=== PATIENT | male | born 1950 | race Hispanic/Latino ===

== ENCOUNTER 2018-01-02 07:31 | Day surgery (SDC) | payer MEDICARE ==
[2017-12-19 09:34] VITALS: BMI 24.8
[2018-01-02] MEDS ORDERED: Lactated Ringer's 1,000 ML IV SCH (08:45)
[2018-01-02] MEDS ORDERED: Etomidate 20 mg/10ml Inj IV ONE (08:45)
[2018-01-02] MEDS ORDERED: Propofol 10 mg/ml Inj (20 ML) ONE ×3 (08:46→09:19)
[2018-01-02 10:29] VITALS: RESP 18
[2018-01-02 10:51] VITALS: BP 154/82; PULSE 71; TEMP 97.6; O2SAT 98
== END 2018-01-02 11:10 | disposition home or self-care (01) ==
LOC: ENDO 07:31
PROVIDERS: ATTEND Internal Medicine Gastroenterology
DX: Z12.11 Encounter for screening for malignant neoplasm of colon (principal); D12.0 Benign neoplasm of cecum; K62.1 Rectal polyp; D17.5 Benign lipomatous neoplasm of intra-abdominal organs; K57.30 Diverticulosis of large intestine without perforation or abscess without bleeding; K64.8 Other hemorrhoids
CPT/HCPCS: 45385; 88305; J2704; J7040; J7120

== ENCOUNTER 2018-02-17 07:22 | Emergency (ER) | payer MEDICARE ==
[2018-02-17 07:23] VITALS: BMI 24.8
[2018-02-17 07:31] VITALS: TEMP 98.9
--- NOTE | 2018-02-17 07:47 | ED PDOC ---
Arrival/HPI - General Historian: Patient - History of Present Illness Time/Duration: 24 hours Symptom Course: Worsening Quality: Aching, Cramping, Burning Severity Level: 10 - General Chief Complaint: Male Genitourinary Time Seen by Provider: 02/17/18 07:35 - History of Present Illness Narrative History of Present Illness (Text): Patient is a 67 year old male with a past medical history of an enlarged prostate who presents to the emergency room for evaluation and treatment of pain near the pubis. Pain remains localized to the aforementioned region and is characterized as being sharp in nature. States that he has not urinated since 9pm yesterday evening. Admits to difficulty initiating the process of urination for the past year. Admits to having a biopsy of his prostate recently. Admits that the increased pressure in the bladder places pressure on the bowels causing him to increase his bowel movemnent frequency overnight. Denies fever, chills, chest pain, shortness of breath, nausea, vomiting, and constipation. 02/17/18 07:39 (Abdirahman Basurto) Past Medical History - Provider Review Nursing Documentation Reviewed: Yes - Travel History Have you recently traveled outside [place] w/in the past 3 mons?: No - Cardiac Hx Pacemaker: No - Pulmonary Hx Respiratory Disorders: No - Neurological Hx Neurological Disorder: No - HEENT Hx HEENT Disorder: No - Renal Hx Renal Disorder: No - Hematological/Oncological Hx Blood Transfusions: No Hx Blood Transfusion Reaction: No - Musculoskeletal/Rheumatological Hx Musculoskeletal Disorders: No - Psychiatric Hx Emotional Abuse: No Hx Physical Abuse: No Hx Substance Use: No - Anesthesia Hx Anesthesia Reactions: No Hx Malignant Hyperthermia: No - Suicidal Assessment Feels Threatened In Home Enviroment: No Family/Social History - Physician Review Nursing Documentation Reviewed: Yes Family/Social History: Unknown Family HX Smoking Status: Never Smoked Hx Alcohol Use: Yes (2 BEERS A DAY WITH DINNER) Hx Substance Use: No Allergies/Home Meds Allergies/Adverse Reactions: Allergies No Known Allergies Allergy (Verified 02/17/18 07:31) Home Medications: Home Meds Medication Instructions Recorded Confirmed Sildenafil Citrate [Viagra] 1 tab PO PRN PRN 12/19/17 02/17/18 Review of Systems - Physician Review All systems were reviewed & negative as marked: Yes - Review of Systems Constitutional: Normal Eyes: Normal ENT: Normal Respiratory: Normal Cardiovascular: Normal Gastrointestinal: Normal Genitourinary Male: Urinary Output Changes, Other (increased urinary urge, decreased output). absent: Frequency Musculoskeletal: Normal Skin: Normal Neurological: Normal Endocrine: Normal Hemo/Lymphatic: Normal Psychiatric: Normal Physical Exam Temperature: Afebrile Blood Pressure: Normal Pulse: Tachycardic Respiratory Rate: Normal Appearance: Positive for: Well-Appearing, Non-Toxic, Comfortable Pain Distress: None Mental Status: Positive for: Alert and Oriented X 3 - Systems Exam Head: Present: Atraumatic, Normocephalic Pupils: Present: PERRL Extroacular Muscles: Present: EOMI Conjunctiva: Present: Normal Mouth: Present: Moist Mucous Membranes Neck: Present: Normal Range of Motion Respiratory/Chest: Present: Clear to Auscultation, Good Air Exchange. No: Respiratory Distress, Accessory Muscle Use Cardiovascular: Present: Regular Rate and Rhythm, Normal S1, S2. No: Murmurs Abdomen: No: Tenderness, Distention, Peritoneal Signs Genitourinary Male: Present: Normal External Genitalia, Other (bladder distention ) Back: Present: Normal Inspection Upper Extremity: Present: Normal Inspection. No: Cyanosis, Edema Lower Extremity: Present: Normal Inspection. No: Edema Neurological: Present: GCS=15, CN II-XII Intact, Speech Normal Skin: Present: Warm, Dry, Normal Color. No: Rashes Psychiatric: Present: Alert, Oriented x 3, Normal Insight, Normal Concentration Vital Signs Temp Pulse Resp BP Pulse Ox 02/17/18 07:29 98.9 F 105 H 20 149/89 98 Medical Decision Making ED Course and Treatment: Assessment and Plan: Patient is a 67 year old male with a past medical history of an enlarged prostate who presents to the emergency room for evaluation and treatment of pain near the pubis. Bladder distention secondary to urinary retention secondary to chronic BPH vs inflammation from recent biopsy procedure 02/17/18 07:50 - patient endorsed to team by Dr. Ramirez - Calabrese catheter placed 02/17/18 07:57 - patient voided approximately 700cc of yellow colored urine - pain has resolved - call placed to Dr. Ramirez 02/17/18 08:21 - vitals stable BP 159/92, HR 92, Sat 99% on RA - patient ok for discharge to home with calabrese leg bag and flomax 02/17/18 08:23 (Abdirahman Basurto) 02/17/18 08:34 67 yo male presents with urinary retention. Agree with resident note. Calabrese placed by RN with 700cc yellow urine. Pain resolved. Reevaluation of abdomen: soft, NT, ND Patient was given Rx Flomax and advised to follow up with his Urologist as an outpatient in 1-[address] Ramirez was in the ED who is aware of patient's care plan. (Douglas Patel) Disposition/Present on Arrival - Present on Arrival Any Indicators Present on Arrival: No History of DVT/PE: No History of Uncontrolled Diabetes: No Urinary Catheter: No History of Decub. Ulcer: No History Surgical Site Infection Following: None - Disposition Have Diagnosis and Disposition been Completed?: Yes Disposition Time: 08:03 - Disposition Diagnosis: Urinary retention, Prostatic disease Disposition: HOME/ ROUTINE Patient Problems: Current Active Problems Problem Status Onset Prostatic disease Acute Condition: IMPROVED Additional Instructions: JACQUE STEELE, thank you for letting us take care of you today. Your provider was and you were treated for PROSTATE PROBLEMS. The emergency medical care you received today was directed at your acute symptoms. If you were prescribed any medication, please fill it and take as directed. It may take several days for your symptoms to resolve. Return to the Emergency Department if your symptoms worsen, do not improve, or if you have any other problems. Please contact your doctor or call one of the physicians/clinics you have been referred to that are listed on the Patient Visit Information form that is included in your discharge packet. Bring any paperwork you were given at discharge with you along with any medications you are taking to your follow up visit. Our treatment cannot replace ongoing medical care by a primary care provider outside of the emergency department. Thank you for allowing the [facility] team to be part of your care today. If you had an X-Ray or CT scan: A Radiologist will review the ED reading if any change in treatment is needed we will contact you. If you had a blood, urine, or wound culture: It will take several days for the results, if any change in treatment is needed we will contact you. If you had an STI test: It will take 48 hours for the results. Please call after 1 week if you have not heard back. Prescriptions: Tamsulosin [Flomax] 0.4 mg PO DAILY 14 Days cap Referrals: Mauricio Hallman MD [Primary Care Provider] - Follow up with primary Forms: [employer] ([place])
[2018-02-17 09:00] VITALS: BP 151/92; PULSE 82; RESP 18; O2SAT 100
== END 2018-02-17 08:35 | disposition home or self-care (01) ==
LOC: ED 07:22
DX: N40.1 Benign prostatic hyperplasia with lower urinary tract symptoms (principal); R33.8 Other retention of urine

== ENCOUNTER 2018-02-22 00:51 | Emergency (ER) | payer MEDICARE ==
[2018-02-22 01:04] VITALS: BMI 25.1
--- NOTE | 2018-02-22 01:19 | ED PDOC ---
Arrival/HPI - General Historian: Patient - History of Present Illness Time/Duration: 24 hours Symptom Onset: Sudden, Gradual Symptom Course: Worsening Quality: Pressure <Abdirahman Basurto - Last Filed: 02/22/18 02:04> <Marcellus Olmos - Last Filed: 02/22/18 02:27> - General Chief Complaint: Male Genitourinary - History of Present Illness Narrative History of Present Illness (Text): Patient is a 67 year old male with a past medical history of an enlarged prostate who presents to the emergency room for evaluation and treatment of pain near the pubis. Patient recently seen for same complaint. At that time, a calabrese catheter was placed and approximately 1000cc of yellow colored urine was produced. Patient states the pain remains localized to the aforementioned region and is characterized as being sharp in nature. States that he has not urinated since 10 pm yesterday evening. Admits to difficulty initiating the process of urination throughout yesterday evening and today. Denies fever, chills, chest pain, shortness of breath, nausea, vomiting, and constipation. 02/22/18 01:21 (Abdirahman Basurto) Past Medical History - Provider Review Nursing Documentation Reviewed: Yes - Travel History Have you recently traveled outside [place] w/in the past 3 mons?: No - Infectious Disease Hx of Infectious Diseases: None - Cardiac Hx Pacemaker: No - Pulmonary Hx Respiratory Disorders: No - Neurological Hx Neurological Disorder: No - HEENT Hx HEENT Disorder: No - Renal Hx Renal Disorder: No - Hematological/Oncological Hx Blood Transfusions: No Hx Blood Transfusion Reaction: No - Musculoskeletal/Rheumatological Hx Musculoskeletal Disorders: No - Psychiatric Hx Emotional Abuse: No Hx Physical Abuse: No Hx Substance Use: No - Anesthesia Hx Anesthesia Reactions: No Hx Malignant Hyperthermia: No - Suicidal Assessment Feels Threatened In Home Enviroment: No <Abdirahman Basurto - Last Filed: 02/22/18 02:04> Family/Social History - Physician Review Nursing Documentation Reviewed: Yes Family/Social History: Unknown Family HX Smoking Status: Never Smoked Hx Alcohol Use: Yes (2 BEERS A DAY WITH DINNER) Hx Substance Use: No <Abdirahman Basurto - Last Filed: 02/22/18 02:04> Allergies/Home Meds <Abdirahman Basurto - Last Filed: 02/22/18 02:04> <Marcellus Olmos - Last Filed: 02/22/18 02:27> Allergies/Adverse Reactions: Allergies No Known Allergies Allergy (Verified 02/22/18 00:54) Home Medications: Home Meds Medication Instructions Recorded Confirmed Sildenafil Citrate [Viagra] 1 tab PO PRN PRN 12/19/17 02/22/18 Review of Systems - Physician Review All systems were reviewed & negative as marked: Yes - Review of Systems Constitutional: Normal Eyes: Normal ENT: Normal Respiratory: Normal Cardiovascular: Normal Gastrointestinal: Normal Genitourinary Male: Urinary Output Changes (decreased urinary output ) Musculoskeletal: Normal Skin: Normal Neurological: Normal Endocrine: Normal Hemo/Lymphatic: Normal Psychiatric: Normal <Abdirahman Basurto - Last Filed: 02/22/18 02:04> Physical Exam Temperature: Afebrile Blood Pressure: Hypertensive Pulse: Regular Respiratory Rate: Normal Appearance: Positive for: Well-Appearing, Non-Toxic, Comfortable Pain Distress: None Mental Status: Positive for: Alert and Oriented X 3 - Systems Exam Head: Present: Atraumatic, Normocephalic Pupils: Present: PERRL Extroacular Muscles: Present: EOMI Conjunctiva: Present: Normal Mouth: Present: Moist Mucous Membranes Neck: Present: Normal Range of Motion Respiratory/Chest: Present: Clear to Auscultation, Good Air Exchange. No: Respiratory Distress, Accessory Muscle Use Cardiovascular: Present: Regular Rate and Rhythm, Normal S1, S2. No: Murmurs Abdomen: No: Tenderness, Distention, Peritoneal Signs Genitourinary Male: Present: Other (tenderness to palpation suprapubic region ) Back: Present: Normal Inspection Upper Extremity: Present: Normal Inspection. No: Cyanosis, Edema Lower Extremity: Present: Normal Inspection. No: Edema Neurological: Present: GCS=15, CN II-XII Intact, Speech Normal Skin: Present: Warm, Dry, Normal Color. No: Rashes Psychiatric: Present: Alert, Oriented x 3, Normal Insight, Normal Concentration <Abdirahman Basurto - Last Filed: 02/22/18 02:04> Vital Signs Temp Pulse Resp BP Pulse Ox 02/22/18 01:05 97.5 F L 94 H 20 165/91 H 97 Medical Decision Making <Abdirahman Basurto - Last Filed: 02/22/18 02:04> <Marcellus Olmos - Last Filed: 02/22/18 02:27> ED Course and Treatment: Assessment and Plan: Patient is a 67 year old male with a past medical history of an enlarged prostate who presents to the emergency room for evaluation and treatment of pain near the pubis. Bladder distention secondary to urinary retention secondary to chronic BPH vs inflammation from recent biopsy procedure - Calabrese catheter placed - patient voided approximately 650cc yellow urine - pain has resolved - vitals stable - patient ok for discharge to home with calabrese leg bag (Abdirahman Basurto) 02/22/18 02:00 67 year old male presents to the Emergency department for evaluation of discomfort to the pubic region. In agreement with resident note, which includes further HPI details. Patient was seen and evaluated with resident, came up with plan and treatment together. (Marcellus Olmos) <Abdirahman Basurto - Last Filed: 02/22/18 02:04> - PA / [employer]CTOR / Resident Statement MD/DO has reviewed & agrees with the documentation as recorded. MD/DO has examined the patient and agrees with the treatment plan. - Scribe Statement The provider has reviewed the documentation as recorded by the Scribe <Marcellus Olmos - Last Filed: 02/22/18 02:27> - Scribe Statement Ai Bazzi. All medical record entries made by the Scribe were at my direction and personally dictated by me. I have reviewed the chart and agree that the record accurately reflects my personal performance of the history, physical exam, medical decision making, and the department course for this patient. I have also personally directed, reviewed, and agree with the discharge instructions and disposition. (Marcellus Olmos) Disposition/Present on Arrival - Present on Arrival Any Indicators Present on Arrival: No History of DVT/PE: No History of Uncontrolled Diabetes: No Urinary Catheter: No History of Decub. Ulcer: No History Surgical Site Infection Following: None - Disposition Have Diagnosis and Disposition been Completed?: Yes Disposition Time: 02:04 Patient Plan: Discharge <Abdirahman Basurto - Last Filed: 02/22/18 02:04> <Marcellus Olmos - Last Filed: 02/22/18 02:27> - Disposition Diagnosis: Urinary retention Disposition: HOME/ ROUTINE Patient Problems: Current Active Problems Problem Status Onset Urinary retention Acute Condition: GOOD Discharge Instructions (ExitCare): Urinary Retention Additional Instructions: JACQUE STEELE, thank you for letting us take care of you today. Your provider was Marcellus Olmos MD and you were treated for urinary retention. The emergency medical care you received today was directed at your acute symptoms. If you were prescribed any medication, please fill it and take as directed. It may take several days for your symptoms to resolve. Return to the Emergency Department if your symptoms worsen, do not improve, or if you have any other problems. Please contact your doctor or call one of the physicians/clinics you have been referred to that are listed on the Patient Visit Information form that is included in your discharge packet. Bring any paperwork you were given at discharge with you along with any medications you are taking to your follow up visit. Our treatment cannot replace ongoing medical care by a primary care provider outside of the emergency department. Thank you for allowing the [facility] team to be part of your care today. If you had an X-Ray or CT scan: A Radiologist will review the ED reading if any change in treatment is needed we will contact you. If you had a blood, urine, or wound culture: It will take several days for the results, if any change in treatment is needed we will contact you. If you had an STI test: It will take 48 hours for the results. Please call after 1 week if you have not heard back. Referrals: Mauricio Hallman MD [Staff Provider] - Follow up with primary Forms: [employer] (Belgian)
[2018-02-22 03:22] VITALS: BP 115/74; PULSE 72; RESP 17; TEMP 98.2; O2SAT 98
== END 2018-02-22 03:22 | disposition home or self-care (01) ==
LOC: ED 00:51
DX: N40.1 Benign prostatic hyperplasia with lower urinary tract symptoms (principal); R33.8 Other retention of urine

== ENCOUNTER 2018-02-22 14:18 | Emergency (ER) | payer MEDICARE ==
[2018-02-22 14:19] VITALS: BMI 25.1
--- NOTE | 2018-02-22 14:47 | ED PDOC ---
Arrival/HPI - General Time Seen by Provider: 02/22/18 14:38 Historian: Patient - History of Present Illness Narrative History of Present Illness (Text): 02/22/18 14:44 67yo male with past medical history of BPH and prostate CA present with complaint of a leaking leg bag. Patient was seen here earlier in the morning for urinary retention and was discharged home with a leg pain. He states urine is dripping intermittently from the leg bag and he came to emergency department for a change of the leg bad. He however denies any abdominal pain, urinary retention/hesitancy, hematuria, fever, chills, back pain, any other complaint. Past Medical History - Provider Review Nursing Documentation Reviewed: Yes - Infectious Disease Hx of Infectious Diseases: None - Cardiac Hx Pacemaker: No - Pulmonary Hx Respiratory Disorders: No - Neurological Hx Neurological Disorder: No - HEENT Hx HEENT Disorder: No - Renal Hx Renal Disorder: No - Hematological/Oncological Hx Blood Transfusions: No Hx Blood Transfusion Reaction: No - Musculoskeletal/Rheumatological Hx Musculoskeletal Disorders: No - Psychiatric Hx Emotional Abuse: No Hx Physical Abuse: No Hx Substance Use: No - Anesthesia Hx Anesthesia Reactions: No Hx Malignant Hyperthermia: No - Suicidal Assessment Feels Threatened In Home Enviroment: No Family/Social History - Physician Review Nursing Documentation Reviewed: Yes Family/Social History: Unknown Family HX Smoking Status: Never Smoked Hx Alcohol Use: Yes (2 BEERS A DAY WITH DINNER) Hx Substance Use: No Allergies/Home Meds Allergies/Adverse Reactions: Allergies No Known Allergies Allergy (Verified 02/22/18 00:54) Home Medications: Home Meds Medication Instructions Recorded Confirmed Sildenafil Citrate [Viagra] 1 tab PO PRN PRN 12/19/17 02/22/18 Review of Systems - Physician Review All systems were reviewed & negative as marked: Yes - Review of Systems Constitutional: Normal Eyes: Normal ENT: Normal Respiratory: Normal Cardiovascular: Normal Gastrointestinal: Normal Genitourinary Male: Normal, Other (Leaking leg bag) Musculoskeletal: Normal Skin: Normal Neurological: Normal Endocrine: Normal Hemo/Lymphatic: Normal Psychiatric: Normal Physical Exam Vital Signs Reviewed: Yes Vital Signs Temp Pulse Resp BP Pulse Ox 02/22/18 15:21 97.9 F 78 18 143/85 100 02/22/18 14:19 97.9 F 81 18 145/86 100 Temperature: Afebrile Blood Pressure: Normal Pulse: Regular Respiratory Rate: Normal Appearance: Positive for: Well-Appearing, Non-Toxic, Comfortable Pain Distress: None Mental Status: Positive for: Alert and Oriented X 3 - Systems Exam Head: Present: Atraumatic, Normocephalic Pupils: Present: PERRL Extroacular Muscles: Present: EOMI Conjunctiva: Present: Normal Mouth: Present: Moist Mucous Membranes Neck: Present: Normal Range of Motion Respiratory/Chest: Present: Clear to Auscultation, Good Air Exchange. No: Respiratory Distress, Accessory Muscle Use Cardiovascular: Present: Regular Rate and Rhythm, Normal S1, S2. No: Murmurs Abdomen: No: Tenderness, Distention, Peritoneal Signs Genitourinary Male: Present: Other (Troy noted in place with leg bag. Very small approximately 100cc of urine noted in bag withotu drainage) Back: Present: Normal Inspection Upper Extremity: Present: Normal Inspection. No: Cyanosis, Edema Lower Extremity: Present: Normal Inspection. No: Edema Neurological: Present: GCS=15, CN II-XII Intact, Speech Normal Skin: Present: Warm, Dry, Normal Color. No: Rashes Psychiatric: Present: Alert, Oriented x 3, Normal Insight, Normal Concentration Medical Decision Making ED Course and Treatment: 02/22/18 19:52 Pt denied any somatic complaint in emergency department . His leg bag was changed in emergency department and he was DC home. Disposition/Present on Arrival - Present on Arrival Any Indicators Present on Arrival: No History of DVT/PE: No History of Uncontrolled Diabetes: No Urinary Catheter: No History Surgical Site Infection Following: None - Disposition Have Diagnosis and Disposition been Completed?: Yes Diagnosis: Troy catheter problem Disposition: HOME/ ROUTINE Disposition Time: 14:50 Patient Plan: Discharge Condition: STABLE Discharge Instructions (ExitCare): Troy Catheter, Male Additional Instructions: Follow up with a urologist Return to emergency department for any new or worsening symptoms Referrals: Scar Ramirez MD [Staff Provider] - Follow up with primary Forms: [employer] (Kazakh)
[2018-02-22 15:11] VITALS: RESP 18; TEMP 97.9; O2SAT 100
[2018-02-22 15:26] VITALS: BP 143/85; PULSE 78
== END 2018-02-22 15:21 | disposition home or self-care (01) ==
LOC: ED 14:18
DX: T83.9XXA Unspecified complication of genitourinary prosthetic device, implant and graft, initial encounter (principal); N40.1 Benign prostatic hyperplasia with lower urinary tract symptoms; R33.8 Other retention of urine